=== PATIENT | male | born 1990 | race Two or more races ===

== ENCOUNTER 2018-01-17 06:19 | Emergency (ER) | payer OTHER ==
[2018-01-17] MEDS ORDERED: Dextrose 5%-Lactated Ringers 1,000 ML IV SCH (07:00)
[2018-01-17] MEDS ORDERED: Metoclopramide 10 MG/2 ML SDV IVPUSH ONE (07:01)
--- NOTE | 2018-01-17 07:05 | EDM.PDOC ---
ED HPI GENERAL MEDICAL PROBLEM - General Chief Complaint: General Stated Complaint: FEELS SHAKEY Time Seen by Provider: 01/17/18 07:01 Source of Information: Reports: Patient History Limitations: Reports: No Limitations - History of Present Illness INITIAL COMMENTS - FREE TEXT/NARRATIVE: 27-year-old male presents to the ED with complaints of feeling very shaky and mildly nauseated. He reports that he was out drinking late last evening mostly beer but this morning feels very shaky and weak and nauseated. He's had no diarrhea. He has not vomited. States he slept only a couple hours last night due to feeling so ill. This morning is finding it difficult to walk due to weakness. Denies any significant abdominal pain. States that he does not drink alcohol regularly. Onset: Today Onset Date: 01/17/18 Onset Time: 04:00 Duration: Hour(s): Location: Reports: Generalized (Generalized feeling of weakness nausea and shakiness.) Quality: Reports: Other Severity: Moderate (Generalized weakness with nausea) Improves with: Reports: None Worsens with: Reports: None Context: Reports: Other (Excessive alcohol use last evening.). Denies: Activity , Exercise, Lifting, Sick Contact, Trauma Associated Symptoms: Reports: Loss of Appetite, Malaise, Nausea/Vomiting, Weakness (Generalized). Denies: Confusion, Chest Pain, Cough, cough w sputum, Diaphoresis, Fever/Chills, Headaches, Rash (Nausea without vomiting), Seizure, Shortness of Breath, Syncope - Related Data Allergies Allergy/AdvReac Type Severity Reaction Status Date / Time No Known Allergies Allergy Verified 01/17/18 06:36 Home Meds: Home Meds . [No Known Home Meds] 01/17/18 [History] Past Medical History - Past Health History Medical/Surgical History: Denies Medical/Surgical History Social & Family History - Family History Family Medical History: Noncontributory - Caffeine Use Caffeine Use: Reports: Soda - Alcohol Use Days Per Week of Alcohol Use: 4 Number of Drinks Per Day: 6 Total Drinks Per Week: 24 - Recreational Drug Use Recreational Drug Use: No - Living Situation & Occupation Occupation: Employed ED ROS GENERAL - Review of Systems Review Of Systems: See Below Constitutional: Reports: Malaise, Weakness, Fatigue, Decreased Appetite. Denies : Fever, Chills HEENT: Reports: No Symptoms Respiratory: Reports: No Symptoms Cardiovascular: Reports: Lightheadedness, Palpitations Endocrine: Reports: Fatigue GI/Abdominal: Reports: Decreased Appetite, Nausea. Denies: Abdominal Pain, Diarrhea, Vomiting : Reports: No Symptoms Musculoskeletal: Reports: No Symptoms Skin: Reports: No Symptoms Neurological: Reports: Dizziness, Headache (Mild), Weakness, Other (Feels very shaky.) Hematologic/Lymphatic: Reports: No Symptoms Immunologic: Reports: No Symptoms ED EXAM, GENERAL - Physical Exam Exam: See Below Exam Limited By: No Limitations General Appearance: Alert, WD/WN, No Apparent Distress, Other (Is able to answer all questions appropriately. Breath smells strongly of stale alcohol.) Eye Exam: Bilateral Eye: Normal Inspection (No jaundice. No nystagmus.) Throat/Mouth: Normal Inspection, Normal Lips, Normal Teeth, Normal Oropharynx Head: Atraumatic, Normocephalic Neck: Normal Inspection, Supple, Non-Tender, Full Range of Motion. No: Lymphadenopathy (L), Lymphadenopathy (R) Respiratory/Chest: No Respiratory Distress, Lungs Clear, Normal Breath Sounds, No Accessory Muscle Use Cardiovascular: Normal Peripheral Pulses, Regular Rate, Rhythm, No Edema, No Gallop, No Murmur Peripheral Pulses: 3+: Posterior Tibial (L), Posterior Tibial (R), Dorsalis Pedis (L), Dorsalis Pedis (R) GI/Abdominal: Normal Bowel Sounds, Soft, Non-Tender, No Organomegaly, No Abnormal Bruit, No Mass, Pelvis Stable Extremities: Normal Inspection, Normal Range of Motion, Non-Tender, No Pedal Edema Neurological: Alert, Oriented, CN II-XII Intact, Normal Cognition, Normal Gait Psychiatric: Normal Affect, Normal Mood Skin Exam: Warm, Dry, Intact, Normal Color Course - Vital Signs Last Recorded V/S: Last Vital Signs Temp 36.7 C 01/17/18 06:33 Pulse 91 01/17/18 06:33 Resp 14 01/17/18 06:33 BP 163/84 H 01/17/18 06:33 Pulse Ox 100 01/17/18 06:33 - Orders/Labs/Meds Orders: Active Orders 24 hr Category Date Time Status Dextrose 5%-Lactated Ringers 1,000 ml Med 01/17/18 07:00 Active IV ASDIRECTED Medication Orders Dextrose/Lactated Ringer's (Dextrose 5%-Lactated Ringers) 1,000 mls @ 999 mls/ hr IV ASDIRECTED CANDACE Last Admin: 01/17/18 07:18 Dose: 999 mls/hr Labs: Laboratory Tests 01/17/18 Range/Units 07:15 Sodium 140 (136-145) mEq/L Potassium 3.5 (3.5-5.1) mEq/L Chloride 106 (98-107) mEq/L Carbon Dioxide 25 (21-32) mEq/L Anion Gap 12.5 (5-15) BUN 11 (7-18) mg/dL Creatinine 1.0 (0.7-1.3) mg/dL Est Cr Clr Drug Dosing 112.92 mL/min Estimated GFR (MDRD) > 60 (>60) mL/min BUN/Creatinine Ratio 11.0 L (14-18) Glucose 117 H (74-106) mg/dL Calcium 9.1 (8.5-10.1) mg/dL Total Bilirubin 0.3 (0.2-1.0) mg/dL AST 18 (15-37) U/L ALT 26 (16-63) U/L Alkaline Phosphatase 85 (46-116) U/L Total Protein 7.3 (6.4-8.2) g/dl Albumin 4.4 (3.4-5.0) g/dl Globulin 2.9 gm/dL Albumin/Globulin Ratio 1.5 (1-2) Amylase 53 (25-115) U/L Meds: Medications Generic Name Dose Route Start Last Admin Trade Name Freq PRN Reason Stop Dose Admin Dextrose/Lactated Ringer's 1,000 mls @ 999 mls/hr 01/17/18 07:00 01/17/18 07: 18 Dextrose 5%-Lactated Ringers IV 999 mls/hr ASDIRECTED CANDACE Administration Discontinued Medications Generic Name Dose Route Start Last Admin Trade Name Freq PRN Reason Stop Dose Admin Metoclopramide HCl 7.5 mg 01/17/18 07:01 01/17/18 07:15 Reglan IVPUSH 01/17/18 07:02 7.5 mg ONETIME ONE Administration - Radiology Interpretation Free Text/Narrative:: 27-year-old male presents to ED with essentially a severe hangover. No drinking heavily last evening until around midnight. States he felt quite nauseated 0400 hrs. but did not vomit. This morning he feels very weak generalize shakiness difficulty walking. Lightheaded dizzy. He did keep down a bit of water this morning. He's had no diarrhea or vomiting. Examination and vital signs are otherwise normal. Assessment volume depletion. Alcohol-induced gastritis. Plan CMP and amylase to be done. IV will be D5 Ringer's lactate at open. Reglan 7.5 mg IV for nausea relief. - Re-Assessments/Exams Free Text/Narrative Re-Assessment/Exam: 01/17/18 07:46 Labs are back. Sodium is 140 with a potassium at 3.5. Bicarbonate is 25. Anion gap is 12.5. Glucose is 117. Total bilirubin 0.3. ELT is 26. Alkaline phosphatase normal at 85. You normal at 53. 01/17/18 07:45: Patient reports she is feeling much improved. He has about 20 minutes last completing his liter of IV fluid replacement. Labs do not confirm a significant pontine depletion or metabolic acidosis. Appears that his stomach may have just been upset from the alcohol. Hang over symptoms. Departure - Departure Time of Disposition: 08:20 Disposition: Home, Self-Care 01 Condition: Fair Clinical Impression: Hangover without complication Gastritis Qualifiers: Gastritis type: alcoholic Chronicity: acute Gastritis bleeding: without bleeding Qualified Code(s): K29.20 - Alcoholic gastritis without bleeding - Discharge Information Instructions: Gastritis, Adult, [id number] Referrals: PCP,None [Primary Care Provider] - Forms: ED Department Discharge Additional Instructions: Evaluation in the emergency room this morning in regards to your effect from alcohol use last evening. You are treated with a liter of IV Ringer's lactate to replace volume and electrolytes. Reglan 7.5 mg used to settle down the stomach. Suggest Gatorade or Powerade this morning to further replenish electrolytes and fluids. May eat a regular diet when able. The rojas to recovery today is plenty of fluids. - My Orders Last 24 Hours: My Active Orders 01/17/18 07:00 Dextrose 5%-Lactated Ringers 1,000 ml IV ASDIRECTED - Assessment/Plan Last 24 Hours: My Active Orders 01/17/18 07:00 Dextrose 5%-Lactated Ringers 1,000 ml IV ASDIRECTED
== END 2018-01-17 08:35 | disposition home or self-care (01) ==
LOC: JD.ED 06:19
DX: K29.20 Alcoholic gastritis without bleeding (principal); F10.129 Alcohol abuse with intoxication, unspecified
CPT/HCPCS: 36415; 80053; 82150; 96361; 96374; 99283; J2765; J7042; 99284

== ENCOUNTER 2020-06-26 15:25 | Emergency (ER) | payer OTHER | END 2020-06-26 17:42 | disposition left against medical advice (07) | LOC: JD.ED 15:25 | DX: Z53.21 Procedure and treatment not carried out due to patient leaving prior to being seen by health care provider (principal) ==